=== PATIENT | male | born 1980 | race Caucasian/White ===

== ENCOUNTER 2023-06-25 20:36 | Emergency (ER) | payer OTHER, SELFPAY ==
[2023-06-25 20:40] VITALS: BP 174/95
[2023-06-25 20:59] LABS: % Basophils 0.5 % (0-2); % Eosinophils 1.1 % (0-6); % Immature Granulocytes 0.4 % (0-0.5); % Lymphocytes 28.7 % (20.5-51.1); % Monocytes 5.6 % (1.7-9.3); % Neutrophils 63.7 % (42.2-75.2); Absolute Basophils 0.1 10^3/uL (0-0.2); Absolute Eosinophils 0.1 10^3/uL (0-0.7); Absolute Lymphocytes 3.2 10^3/uL (1.2-3.4); Absolute Monocytes 0.6 10^3/uL (0.1-0.6); Hematocrit 46.8 % (39.0-52.0); Hemoglobin 16.6 g/dL (13.0-18.0); Mean Corp Hgb Conc. 35.5 g/dL (33.0-37.0); Mean Corpuscular Hgb 28.8 pg (27.0-31.0); Mean Corpuscular Volume 81.3 fL (80.0-94.0); Nucleated Red Blood Cells % 0 % (-); Platelet Count 266 10^3/uL (130-400); Red Blood Cell Count 5.76 10^6/uL (4.70-6.10); Red Cell Dist. Width 12.6 % (11.5-14.5)
[2023-06-25 21:14] LABS: ALT (SGPT) 120 U/L (0-50); AST (SGOT) 56 U/L (17-59); Albumin 4.4 g/dl (3.5-5.0); Alkaline Phosphatase 78 U/L (38-126); Blood Urea Nitrogen 21 mg/dl (9-20); Calcium 9.6 mg/dl (8.4-10.2); Carbon Dioxide 24 mmol/L (22-30); Chloride 104 mmol/L (98-107); Glucose 130 mg/dl (70-99); Lipase 229 U/L (23-300); Potassium 4.1 mmol/L (3.5-5.1); Sodium 135 mmol/L (135-145); Total Bilirubin 0.8 mg/dl (0.2-1.3); Total Protein 7.4 g/dl (6.3-8.2); eGFR > 60.00
--- NOTE | 2023-06-25 22:48 | ED.GENMED ---
History of Present Illness
General
Chief Complaint: Numbness
Source: patient
Time Seen by Provider: 06/25/23 21:31
Travel History
Have you had any contact with someone who has COVID-19?: No
Do you have any symptoms of coronavirus? Fever > 100 degrees, chills, cough, shortness of breath, sore throat, loss of taste or smell, muscle aches, or headache?: No
History of Present Illness
History of Present Illness:
43-year-old male with past medical history of type 1 diabetes, hyperlipidemia, asthma presenting to the emergency department for evaluation of bilateral lower extremity leg swelling that has been intermittent over the last few weeks, intermittent
aching sensation (notes this seems to occur while he is walking at times), 40 pound weight gain since February, intermittent abdominal discomfort with bloating sensation, generalized fatigue and generally feeling unwell. Patient does note that some
of the symptoms are little bit more chronic than others but his main concern was he did develop some chest discomfort over the last week or so and while searching the Internet thought he could potentially have heart failure. Patient notes that his
father at the age of 59 from an [place] and his sister needed a pacemaker at the age of 21. Patient follows with cardiology and had a stress echo in February which was reportedly under. Social history was significant for occasional alcohol
use. 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
Past History
Past History
ED Past Medical History: Asthma, Hypercholesterolemia and IDDM
ED Past Surgical History: None
Social History
Tobacco: Non-smoker
Alcohol: Occasional
Drug: None
Personal:
Living: with family
Employment: Employed
Review of Systems
Review of Systems
All Other Systems: ROS reviewed and negative except as documented in HPI and ROS
Phy Exam
Physical Exam
Physical Exam:
GENERAL: Alert , in no apparent distress
EYE: conjunctiva clear
NECK: Supple,
ENT: o/p clr, mmm.
CARDIAC: Regular rate and rhythm, no murmur
LUNGS: Clear breath sounds bilaterally, no acute respiratory distress, no wheezes/rales/rhonchi
Abdomen: Soft, nontender, nondistended
NEUROLOGICAL: Alert and oriented
SKIN: Warm and dry, skin intact.
MUSCULOSKELETAL: well perfused. Cap refill less than 2 seconds bilateral upper and lower extremities
PSYCH: Normal and appropriate interaction.
Scores
Heart Failure Risk
Heart Failure Risk Score: Yes
History of Stroke or TIA: No
History of intubation for respiratory distress: No
Heart rate on ED arrival >/= 110: No
SaO2 <90% on arrival on room air: No
HR >/=110 during 3min walk test (or too ill to perform test): No
ECG has acute ischemic changes: No
Urea >/=12mmol/L (BUN 33.6mg/dL): No
Serum CO2>/=35mmol/L: No
Troponin I or T elevated to [place] Level (0.4mg/dL): No
NT-proBNP >/=5,000ng/L (5,000pg/ml): No
HF Risk Score: 0
Admission Status: LOW RISK 2.8% Consider discharge to home with f/u visit to PCP/[facility]
Heart Score for Chest Pain Patients
STEMI patient?: Not applicable
Withdrawal Assessment of Alcohol
Withdrawal Assessment Completed?: Not applicable
Course
Orders/Labs/Results
Orders:
Orders
06/25/23 20:54
Complete Blood Count/With Diff Urgent
Comprehensive Metabolic Panel Urgent
Lipase Urgent
06/25/23 21:45
Electrocardiogram (*1) Urgent
Reason for Study: Shortness of Breath
EKG- Treatment ONCE
06/25/23 21:46
CR Chest - 2 Views Urgent
Comment:
Reason For Exam: SOB
03/14/24 23:22
Urinalysis Reflex To Culture Urgent
Date Specimen was Collected: 06/25/23
Time Specimen was Collected: 20:44
06/25/23 23:57
Pro-BNP [NT-proBNP] Urgent
Troponin I Urgent
Abnormal Lab Results
06/25/23
20:54
WBC 11.0 H 10^3/uL
(4.8-10.8)
Absolute Neuts (auto) 7.0 H 10^3/uL
(1.4-6.5)
BUN 21 H mg/dl
(9-20)
Glucose 130 H mg/dl
(70-99)
ALT 120 H U/L
(0-50)
06/25/23 20:54
06/25/23 20:54
Vital Signs
Initial and Last Documented VS:
Initial Vital Signs
Temp Pulse Resp BP Pulse Ox
98.3 F 77 16 174/95 96
06/25/23 20:40 06/25/23 20:40 06/25/23 20:40 06/25/23 20:40 06/25/23 20:40
Last Documented Vital Signs
Temp Pulse Resp BP Pulse Ox
98.3 F 77 16 124/80 95
06/25/23 20:40 06/25/23 20:40 06/25/23 20:40 06/25/23 23:12 06/26/23 00:30
MDM/Problems Addressed
Differential Diagnosis Includes:
CHF certainly considered given the reported weight gain and swelling however less likely given recent stress echo which did not show any valvular abnormalities nor reduced ejection fraction, less concern for ACS, no concern for infectious etiologies
MDM/Problems Addressed:
43-year-old male presenting emergency department for evaluation of a multitude of symptoms over the last few weeks and months. Patient's main concern was possibility for CHF. Ultimately I am less suspicious for this but will obtain labs, urine,
chest x-ray and reassess. 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
*Pulse Oximetry
Patient hypoxic: no
*EKG
Interpreted by ED Provider?: Yes
Comparison EKG: no comparison EKG present
Heart Rate: 77
Rate: normal
Rhythm: sinus
Ellery: normal axis
Ischemia: no ischemia
*Physical Chemistry Professor Interpretation
Rate: normal
Rhythm: sinus
*Critical Care Note
Total Time (30-74mins, 75-104mins- exclusive of procedures): Not Applicable
Data Reviewed
Review of Other/Old Records Reveals: Records and Testing
Source: records
Comment
Comment:
Patient's echocardiogram shows normal biventricular size and systolic function. Estimated left ventricular ejection 5 to 60%. Mild LVH, no valvular disease.
Patient Management
Escalation/DeEscalation of care consider admission/obs:
Patient's lab work is overall reassuring. We did discuss his mild ALT elevation that he should have this followed up upon to ensure stabilization or that it goes back to normal. Troponin and BNP is unremarkable. EKG nonischemic. I discussed with
patient that while he has been experiencing the symptoms for an extended period of time there does not appear to be any acute emergent pathologies and that he is stable to follow-up with his primary care provider. Aware of return precautions.
Stable for discharge home
ED Attending Note
-
Portions of this chart may have been created with voice recognition software.� Occasional wrong word or��sound alike� substitutions may have occurred due to the inherent limitations of voice recognition software.
Discharge Plan
Departure
Patient Disposition: Home (Routine Discharge)
Date of Disposition: 06/26/23
Time of Disposition: 00:33
Patient with high blood pressure during this ER visit?: Yes
Discharge Problem:
Edema
Instructions: Swelling
Prescriptions:
No Action
glimepiride 2 MG tablet
2 mg PO DAILY
fluticasone propionate 1 SPRAY spray,suspension
1 spray intranasal DAILY
Referrals:
Russell Calhoun MD [Family Provider] -
Interventions
Interventions:
*Risk Screen - Suicide Last Done: 06/25/23 23:04
*General Assessment Last Done: 06/25/23 20:40
*Neglect/Abuse Screening Last Done: 06/25/23 23:04
ED- Fall Risk Assessment Last Done: 06/25/23 23:04
*ED COVID-19 Vaccine History Last Done: 06/25/23 20:40
*Nursing Disposition Last Done: 06/26/23 00:41
ED- Neurological Assessment Last Done: 06/25/23 23:04
Discharge Date and Time
Discharge Date/Time: 06/26/23 00:43
[2023-06-25 23:00] VITALS: BMI 40.1
[2023-06-25 23:12] VITALS: BP 124/80
[2023-06-25 23:32] LABS: Urine Albumin Negative (Neg - Trace); Urine Bilirubin Negative (Negative); Urine Character Clear (Clear); Urine Color Yellow; Urine Glucose Negative (Negative); Urine Ketone Negative (Negative); Urine Leukocyte Negative (Negative); Urine Nitrite Negative (Negative); Urine Occult Blood Negative (Negative); Urine Urobilinogen Negative (Neg - 1+)
[2023-06-26 00:29] LABS: NT-proBNP 20.6 pg/ml; Troponin I < 0.012 ng/ml
== END 2023-06-26 00:43 | disposition home or self-care (01) ==
LOC: EMR 20:36
PROVIDERS: Emergency Medicine; Physician Assistant Medical; EMERGENCY PHYSICIAN Student in an Organized Health Care Education/Training Program; FAMILY PHYSICIAN Family Medicine
DX: R60.9 Edema, unspecified (principal); J45.909 Unspecified asthma, uncomplicated; E78.00 Pure hypercholesterolemia, unspecified
CPT/HCPCS: 99283; 71046; 80053; 81003; 83690; 83880; 84484; 85025; 93005